=== PATIENT | female | born 1960 | race Caucasian/White ===

== ENCOUNTER 2017-08-12 13:00 | Outpatient (RCR) | payer OTHER ==
[2016-03-02 22:15] VITALS: BP 134/79
[~2017-08-12 13:00] MED LIST: ASPIR LOW81 MG PO; CALCIUM500 M1; CEPHALEXIN500 M1 PO; LEVOTHYROXINE PO
== END 2017-08-12 13:30 | disposition home or self-care (01) ==
LOC: PT 13:00
DX: M51.26 Other intervertebral disc displacement, lumbar region (principal)

== ENCOUNTER 2017-12-04 15:00 | Outpatient (RCR) | payer OTHER ==
[2016-03-02 22:15] VITALS: BP 134/79
== END 2017-12-04 15:30 | disposition home or self-care (01) ==
LOC: PT 15:00
DX: M51.26 Other intervertebral disc displacement, lumbar region (principal)

== ENCOUNTER → 2018-03-13 | Outpatient (CLI) | payer OTHER ==
[2016-03-02 22:15] VITALS: BP 134/79
[2018-03-13 16:03] LABS: D-DIMER 0.86 mg/L FEU (0.15-0.50)
== END ==
LOC: LAB 15:07 → RAD 15:07
PROVIDERS: Physician Assistant
DX: M79.661 Pain in right lower leg (principal); R22.41 Localized swelling, mass and lump, right lower limb

== ENCOUNTER 2018-04-30 11:30 | Outpatient (RCR) | payer OTHER ==
[2016-03-02 22:15] VITALS: BP 134/79
== END 2018-07-09 | disposition home or self-care (01) ==
LOC: PT
DX: Z47.89 Encounter for other orthopedic aftercare (principal); M79.671 Pain in right foot; R20.0 Anesthesia of skin; Z98.1 Arthrodesis status

== ENCOUNTER → 2018-10-19 | Outpatient (CLI) | payer OTHER ==
[2016-03-02 22:15] VITALS: BP 134/79
== END ==
LOC: RAD 11:50
DX: R29.810 Facial weakness (principal)

== ENCOUNTER 2019-07-05 22:18 | Emergency (ER) | payer OTHER ==
[~2019-07-05] VITALS: Ht 167.6 cm; Wt 81.8 kg
[2019-07-05] MEDS ORDERED: LEVOTHYROXIN0.088 MG PO (22:42)
[2019-07-05] MEDS ORDERED: PREDNISONE20 M1 PO (23:03)
[2019-07-05 23:16] VITALS: BP 159/92
== END 2019-07-05 23:10 | disposition home or self-care (01) ==
LOC: ED 22:18
DX: T78.1XXA Other adverse food reactions, not elsewhere classified, initial encounter (principal); R21 Rash and other nonspecific skin eruption; E03.9 Hypothyroidism, unspecified
CPT/HCPCS: J7512